=== PATIENT | male | born 1990 | race Asian ===

== ENCOUNTER 2021-12-25 20:49 | Emergency (ER) | payer SELFPAY ==
[2021-12-25 21:03] VITALS: BP 197/138
--- NOTE | 2021-12-25 21:05 | ED Integumentary General ---
General Chief Complaint: Skin/Wound Problems Stated Complaint: CAT SCRATCH Source: patient Exam Limitations: no limitations History of Present Illness Date Seen by Provider: Dec 25, 2021 Time Seen by Provider: 21:03 Initial Comments Patient is a 31-year-old male who presents with cat scratch to his chest wall and hand. The cat was a stray cat that the patient was trying to rescue. There is a near imperceptible abrasion on the patient's anterior chest. There is no other symptoms. The injury occurred prior to ED arrival. Patient's tetanus is up-to-date Timing/Duration: just prior to arrival Severity: mild Possible Cause: other Modifying Factors: improves with other Associated Symptoms: other Allergies and Home Medications Allergies Coded Allergies: No Known Drug Allergies (Unverified , 12/25/21) Patient Home Medication List Home Medication List Reviewed: No Review of Systems Review of Systems Constitutional: see HPI Skin: see HPI Past Rotnmaw-Qbzhle-Cliwpe Hx Patient Social History Tobacco Use?: No Use of E-Cig and/or Vaping dev: No Substance use?: No Alcohol Use?: Yes Alcohol Frequency: Once in a while Pt feels they are or have been: No Physical Exam Vital Signs Capillary Refill : General Appearance: WD/WN, no apparent distress Skin Problem Location: torso (Near imperceptible abrasion anterior central chest) Departure Communication (Admissions) Patient with medical complaint, which does not require emergent treatment. Recommendations are soap and water and PCP follow-up as needed Impression Primary Impression: Cat scratch Disposition: 01 HOME, SELF-CARE Condition: Stable Departure-Patient Inst. Decision time for Depature: 21:06 Referrals: NO,LOCAL PHYSICIAN (PCP/Family) Primary Care Physician Patient Instructions: Skin Abrasions (DC) Add. Discharge Instructions: Please clean area with soap and water and apply topical antibiotic upon returning home. Follow-up with your PCP as needed All discharge instructions reviewed with patient and/or family. Voiced understanding. FIORDALIZA GRAY DO Dec 25, 2021 21:05
== END 2021-12-25 21:09 | disposition home or self-care (01) ==
LOC: ER FS 20:51
DX: S20.319A Abrasion of unspecified front wall of thorax, initial encounter (principal); Z28.310 Unvaccinated for COVID-19; W55.03XA Scratched by cat, initial encounter
CPT/HCPCS: 99281

== ENCOUNTER 2021-12-29 10:42 | Emergency (ER) | payer SELFPAY ==
[~2021-12-29] VITALS: Ht 172.7 cm; Wt 83.0 kg
[2021-12-29] MEDS ORDERED: AMOX1TAB12 PO (11:30)
--- NOTE | 2021-12-29 11:30 | ED General ---
General Chief Complaint: Bite-Animal/Human/Insect Stated Complaint: CAT BITE RT HAND Nursing Triage Note: Patient reports he has been feeding a wild kitten in his backyard. He states the kitten bit him on his right wrist yesterday while he was feeding it/playing with it. Source of Information: Patient Exam Limitations: No Limitations History of Present Illness Date Seen by Provider: Dec 29, 2021 Time Seen by Provider: 10:53 Initial Comments 31-year-old right-handed male patient without history of medical states he was feeding and playing with a street kitten in his backyard yesterday and the kitten bit him in the right wrist and very small amount of blood came out. Patient complaining of a few puncture wound in his right wrist with mild pain and has concern for rabies vaccine. Patient is up-to-date with tetanus immunization. Patient states he has access to the kitten and can watch the kitten for 10 days. Allergies and Home Medications Allergies Coded Allergies: No Known Drug Allergies (Unverified , 12/25/21) Patient Home Medication List Home Medication List Reviewed: Yes Amoxicillin/Potassium Clav (Amox Tr-K Clv 875-125 mg Tab) 875 Mg-125 Mg Tablet, 1 EACH PO Q12H Prescribed by: Cortney kwan on 12/29/21 1130 Review of Systems Review of Systems Constitutional: no symptoms reported EENTM: no symptoms reported Respiratory: no symptoms reported Cardiovascular: no symptoms reported Gastrointestinal: no symptoms reported Genitourinary: decreased output Musculoskeletal: see HPI Skin: see HPI Psychiatric/Neurological: No Symptoms Reported Hematologic/Lymphatic: No Symptoms Reported Immunological/Allergic: no symptoms reported All Other Systems Reviewed Negative Unless Noted: Yes Past Gtewfho-Pdaiiz-Axvvoq Hx Patient Social History Tobacco Use?: No Substance use?: No Alcohol Use?: No Pt feels they are or have been: No Physical Exam Vital Signs Vital Signs - First Documented 12/29/21 10:45 Temp 36.2 Pulse 75 Resp 18 B/P (MAP) 162/101 (121) Pulse Ox 100 O2 Delivery Room Air Capillary Refill : Less Than 3 Seconds Height, Weight, BMI Height: '" Weight: lbs. oz. kg; 27.00 BMI Method: General Appearance: No Apparent Distress, WD/WN Eyes: Bilateral Eye Normal Inspection, Bilateral Eye EOMI HEENT: PERRL/EOMI Neck: Full Range of Motion Respiratory: Chest Non Tender, Lungs Clear, Normal Breath Sounds, No Accessory Muscle Use Cardiovascular: Regular Rate, Rhythm, No Edema, No Gallop Extremity: Normal Capillary Refill, Other (Few very small puncture wound of right hand and wrist without erythema or tenderness) Neurologic/Psychiatric: Alert, Oriented x3 Skin: Normal Color Lymphatic: No Adenopathy Progress/Results/Core Measures Suspected Sepsis SIRS Temperature: Pulse: 75 Respiratory Rate: 18 Blood Pressure 162 /101 Mean: 121 Results/Orders Vital Signs/I&O 12/29/21 12/29/21 10:45 11:35 Temp 36.2 36.2 Pulse 75 75 Resp 18 18 B/P (MAP) 162/101 (121) 162/101 Pulse Ox 100 100 O2 Delivery Room Air Room Air Capillary Refill : Less Than 3 Seconds Blood Pressure Mean: 121 Progress Note : Progress Note Evaluation of patient in ER showed 31-year-old male patient who had a cat bite to right wrist. Patient stated he could watch the cat for 10 days for signs of rabies. Prescription for Augmentin was given. Police Department informed and they stated animal control does not check for cat. Patient feels comfortable to go home and checking on the cat for signs of rabies for the next 10 days and follow-up with ER if the cat showing abnormal sign developing signs for rabies Departure Impression Primary Impression: Cat bite Qualified Codes: W55.01XA - Bitten by cat, initial encounter Disposition: HOME, SELF-CARE Condition: Stable Departure-Patient Inst. Decision time for Depature: 11:25 Referrals: NO,LOCAL PHYSICIAN (PCP/Family) Primary Care Physician Patient Instructions: Animal Bites ED, Wound Care (DC) Add. Discharge Instructions: Watch the cat for 10 days for signs of rabies Keep wound clean and dry Return to ER as needed All discharge instructions reviewed with patient and/or family. Voiced understanding. Scripts Amoxicillin/Potassium Clav (Amox Tr-K Clv 875-125 mg Tab) 875 Mg-125 Mg Tablet 1 EACH PO Q12H, #14 TAB Prov: CORTNEY KWAN MD 12/29/21 CORTNEY KWAN MD Dec 29, 2021 11:30
[2021-12-29 11:35] VITALS: BP 162/101
== END 2021-12-29 11:35 | disposition home or self-care (01) ==
LOC: EDUNIT# 10:42 → ER FS 10:43
DX: S61.431A Puncture wound without foreign body of right hand, initial encounter (principal); S61.531A Puncture wound without foreign body of right wrist, initial encounter; W55.01XA Bitten by cat, initial encounter
CPT/HCPCS: 99283